=== PATIENT | female | born 1955 | race Two or more races ===

== ENCOUNTER 2022-10-05 11:13 | Emergency (ER) | payer OTHER ==
[~2022-10-05] VITALS: Ht 149.9 cm; Wt 63.5 kg
[2022-10-05] MEDS ORDERED: NORVASC5 MG PO (11:42)
[2022-10-05] MEDS ORDERED: LEVOTHYROXINE25 MCG PO (11:42)
== END 2022-10-05 14:33 | disposition home or self-care (01) ==
LOC: ER 11:13
DX: S39.82XA Other specified injuries of lower back, initial encounter (principal); V43.52XA Car driver injured in collision with other type car in traffic accident, initial encounter; Y93.89 Activity, other specified; Y92.413 State road as the place of occurrence of the external cause; S29.8XXA Other specified injuries of thorax, initial encounter

== ENCOUNTER 2023-11-05 18:01 | Emergency (ER) | payer OTHER ==
[~2023-11-05] VITALS: Ht 149.9 cm; Wt 67.6 kg
[~2023-11-05 18:01] MED LIST: ALBUTEROL2.5 MG/3 M IH; BUDESONIDE0.5 MG/2 M IH; FLONASE16 GM NASAL; LEVOTHYROXINE25 MCG PO; NORVASC5 MG PO; ZYNCOF 20-400120 ML PO
[2023-11-05] MEDS ORDERED: AZITHROMYCIN500 M2 (18:21)
[2023-11-05] MEDS ORDERED: METHYLPREDNISOLONE SOD SUCC 125 MG VIAL IV ONE (19:15)
[2023-11-05] MEDS ORDERED: KETOROLAC TROMETHAMINE 15 MG VIAL IV ONE (19:15)
[2023-11-05] MEDS ORDERED: BENZONATATE 100 MG CAPSULE PO ONE (19:15)
[2023-11-05] MEDS ORDERED: KETOROLAC TROMETHAMINE 30 MG VIAL ONE (19:16)
[2023-11-05] MEDS ORDERED: METHYLPREDNISOLONE SOD SUCC 125 MG VIAL ONE (19:16)
[2023-11-05 19:47] LABS: HEMATOCRIT 36.2 % (36.0-45.00); HEMOGLOBIN 12.1 g/dL (12.0-15.00); MEAN CELL VOLUME 80.2 fL (80.00-100.00); MEAN CORPUSCULAR HEMOGLOBIN 26.8 pg (27.00-32.0); MEAN CORPUSCULAR HGB CONC 33.4 g/dl (32.0-36.0); PLATELET COUNT 381 K/uL (150-450); RED BLOOD COUNT 4.52 M/uL (4.00-6.00); RED CELL DISTRIBUTION WIDTH 15.2 % (11.5-14.5)
[2023-11-05 20:00] LABS: CALCIUM 8.8 mg/dL (8.5-10.1); CREATININE SERUM 0.75 mg/dL (0.55-1.02); GFR 76.62; POTASSIUM 4.36 mEq/L (3.5-5.1)
[2023-11-05] MEDS ORDERED: BENZONATATE100 MG PO (20:49)
[2023-11-05] MEDS ORDERED: SINGULAIR10 MG PO (20:49)
== END 2023-11-05 20:58 | disposition home or self-care (01) ==
LOC: ER 18:02
PROVIDERS: Nurse Practitioner Family
DX: R60.0 Localized edema (principal); R53.83 Other fatigue; I10 Essential (primary) hypertension; Z20.822 Contact with and (suspected) exposure to COVID-19

== ENCOUNTER → 2024-05-11 | Emergency (ER) | payer OTHER ==
[~2024-05-11] VITALS: Ht 149.9 cm; Wt 65.8 kg
[~2024-05-11] MED LIST changes: +AZITHROMYCIN500 M2; +BENZONATATE100 MG PO; +FAMOTIDINE/PF 20 MG/2 ML VIAL ONE; +FAMOtidine 10 MG/ML (4ML VIAL) IV PUSH ONE; +KETO10TA2 PO; +KETOROLAC TROMETHAMINE 60 MG VIAL IM ONE; +SINGULAIR10 MG PO
[2024-05-11 10:31] LABS: HEMATOCRIT 40.3 % (36.0-45.00); MEAN CELL VOLUME 82.5 fL (80.00-100.00); MEAN CORPUSCULAR HEMOGLOBIN 26.5 pg (27.00-32.0); MEAN CORPUSCULAR HGB CONC 32.2 g/dl (32.0-36.0); PLATELET COUNT 355 K/uL (150-450); RED BLOOD COUNT 4.89 M/uL (4.00-6.00); RED CELL DISTRIBUTION WIDTH 15.2 % (11.5-14.5)
[2024-05-11 11:24] LABS: ALBUMIN 2.9 gm/dL (3.4-5.0); BILIRUBIN TOTAL 0.54 mg/dL (0.3-1.2); CALCIUM 9.2 mg/dL (8.5-10.1); CREATININE SERUM 0.74 mg/dL (0.55-1.02); GFR 77.59; GLOBULINA 3.6 G/DL (2.4-3.5); POTASSIUM 3.88 mEq/L (3.5-5.1); TOTAL PROTEIN 6.5 gm/dL (6.4-8.2)
== END | disposition home or self-care (01) ==
LOC: ER 08:46
PROVIDERS: General Practice
DX: M94.0 Chondrocostal junction syndrome [Tietze] (principal); R07.89 Other chest pain; I10 Essential (primary) hypertension; E03.9 Hypothyroidism, unspecified

== ENCOUNTER 2025-03-16 22:24 | Emergency (ER) | payer OTHER ==
[~2025-03-16] VITALS: Ht 149.9 cm; Wt 68.9 kg
[~2025-03-16 22:24] MED LIST changes: -FAMOTIDINE/PF 20 MG/2 ML VIAL ONE; -FAMOtidine 10 MG/ML (4ML VIAL) IV PUSH ONE; -KETOROLAC TROMETHAMINE 60 MG VIAL IM ONE
[2025-03-16] MEDS ORDERED: COZAAR50 MG PO (22:29)
[2025-03-17] MEDS ORDERED: KETOROLAC TROMETHAMINE 30 MG VIAL IM STA (00:47)
== END 2025-03-17 01:26 | disposition home or self-care (01) ==
LOC: ER 22:25
DX: S01.521A Laceration with foreign body of lip, initial encounter (principal); R68.84 Jaw pain; V48.5XXA Car driver injured in noncollision transport accident in traffic accident, initial encounter; Y93.89 Activity, other specified; Y92.413 State road as the place of occurrence of the external cause
CPT/HCPCS: 71045; 72040; 96372; 99283; J1885